=== PATIENT | male | born 1945 | race Caucasian/White ===

== ENCOUNTER 2020-02-22 06:27 | Inpatient (IN) ==
[~2020-02-22 06:27] MED LIST: *HR* HYDROmorphone 2 MG TABLET PO PRN; *HR* Labetalol 20 MG/4 ML SYRINGE IVP PRN; *HR* OxyCODONE Immed Rel 5 MG TABLET PO PRN; *HR* Promethazine 25 MG/ML VIAL IVP PRN
[2020-02-22] MEDS ORDERED: Famotidine 20 MG/2 ML VIAL IVP ONE (07:00)
[2020-02-22] MEDS ORDERED: Acetaminophen IV 1,000 MG/100 ML INFUS..BTL IVPB ONE (07:00)
[2020-02-22] MEDS ORDERED: cefOXitin 2,000 MG in Water for inj. (sterile) 20 ML IVP ONE (07:04)
[2020-02-22] MEDS ORDERED: Ringers Solution, Lactated 1,000 ML IVC SCH (07:15)
[2020-02-22] MEDS ORDERED: *HR* FentaNYL (PF) 100 MCG/2 ML VIAL ONE ×2 (07:17→09:15)
[2020-02-22] MEDS ORDERED: *HR* Propofol 200 MG/20 ML VIAL IVP ONE (07:17)
[2020-02-22] MEDS ORDERED: Lidocaine -MPF 2% 2 ML VIAL ONE (07:18)
[2020-02-22] MEDS ORDERED: Dexamethasone 4 MG/ML VIAL ONE (07:18)
[2020-02-22] MEDS ORDERED: *HR* Rocuronium Bromide 50 MG/5 ML VIAL ONE (07:18)
[2020-02-22] MEDS ORDERED: Ondansetron 4 MG/2 ML VIAL ONE (07:18)
[2020-02-22] MEDS ORDERED: *HR* Succinylcholine 200 MG/10 ML VIAL IVP ONE (07:18)
[2020-02-22] MEDS ORDERED: Lidocaine HCL 4 ML Topical Solution (Laryng-O-Jet Kit Sterile Pak) TP ONE (07:18)
[2020-02-22] MEDS ORDERED: EPHEDrine 50 MG/ML VIAL ONE (08:16)
[2020-02-22] MEDS ORDERED: *HR* PHENYLEPHRINE 1,000 MCG/10 ML SYRINGE IVP ONE (08:18)
[2020-02-22] MEDS ORDERED: Neostigmine Methylsulfate 3 MG/3 ML SYRINGE ONE (09:55)
[2020-02-22] MEDS ORDERED: *HR* HYDROMORPHONE 2 MG/ML VIAL ONE (10:17)
[2020-02-22] MEDS: *HR* HYDROmorphone (PF) 1 MG/ML SYRINGE IVP PRN ×4 (10:40→11:10)
[2020-02-22] MEDS ORDERED: Ondansetron 4 MG/2 ML VIAL IVP PRN (11:46)
[2020-02-22] MEDS ORDERED: *HR* OxyCODONE Immed Rel 5 MG TABLET PO PRN (11:46)
[2020-02-22] MEDS: Ringers Solution, Lactated 1,000 ML IVC SCH ×3 (12:05→23:27)
[2020-02-22] MEDS: Ibuprofen 600 MG TABLET PO SCH (17:59)
[2020-02-22] MEDS: amLODIPine 5 MG TABLET PO SCH (21:17)
[2020-02-23] MEDS: Ibuprofen 600 MG TABLET PO SCH ×2 (05:45→17:40)
[2020-02-23] MEDS: Aspirin Enteric Coated 81 MG Tablet PO SCH (08:09)
[2020-02-23] MEDS: Ringers Solution, Lactated 1,000 ML IVC SCH (08:41)
[2020-02-23] MEDS ORDERED: *HR* Heparin 5,000 UNIT/ML VIAL SQ SCH (09:00)
[2020-02-23] MEDS: amLODIPine 5 MG TABLET PO SCH (20:00)
[2020-02-23] MEDS: *HR* Heparin 5,000 UNIT/ML VIAL SQ SCH (22:11)
[2020-02-24] MEDS: *HR* Heparin 5,000 UNIT/ML VIAL SQ SCH (05:45)
[2020-02-24] MEDS: Ibuprofen 600 MG TABLET PO SCH (05:45)
[2020-02-24 08:33] LABS: BUN/Creatinine Ratio 24 (6-26); Blood Urea Nitrogen 23 mg/dL (8-23); Calcium 8.9 mg/dL (8.6-10.3); Carbon Dioxide 27 mEq/L (23-29); Chloride 105 mEq/L (98-107); Glucose 117 mg/dL (70-105); Osmolality,Calculated 293 (280-300); Sodium 139 mEq/L (136-145); eGFR For African Americans > 60 (> 60); eGFR For Non-African Americans > 60 (> 60)
[2020-02-24 08:38] LABS: Basophils % 0.2 %; Eosinophils % 0.1 %; Hematocrit 37.4 % (37.5-50.1); Hemoglobin 12.5 g/dL (12.9-16.9); Immature Granulocytes % 0.4 % (0-4); Lymphocytes # 1.8 K/mcL (0.6-4.6); Lymphocytes % 12.6 %; Mean Corpuscular HGB Conc 33.4 g/dL (31.6-35.5); Mean Corpuscular Hemoglobin 32.7 pg (28.0-33.3); Mean Corpuscular Volume 97.9 fL (83.0-100.0); Monocytes # 0.9 K/mcL (0.0-1.3); Monocytes % 6.6 %; Neutrophils # 11.3 K/mcL (1.6-8.9); Platelet Count 177 K/mcL (140-400); Red Blood Count 3.82 M/mcL (4.19-5.50); Red Cell Distribution Width 12.4 % (11.5-14.5); Segmented Neutrophils % 80.1 %; White Blood Count 14.1 K/mcL (4.3-11.1)
[2020-02-24] MEDS: Aspirin Enteric Coated 81 MG Tablet PO SCH (08:40)
[2020-02-24 09:20] VITALS: BP 125/70
== END 2020-02-24 09:41 | disposition home or self-care (01) | DRG 416 ==
LOC: 3ANU 06:27 → SAMDAY 06:27 → 3ANU 11:45
PROVIDERS: ADMIT Surgery; ATTEND Surgery